=== PATIENT | female | born 1975 | race Two or more races ===

== ENCOUNTER 2018-01-07 02:45 | Emergency (ER) | payer MEDICAID, OTHER ==
[~2018-01-07] VITALS: Ht 165.1 cm; Wt 65.8 kg
--- NOTE | 2018-01-07 02:58 | NUR ---
PT A/OX4, PRESENTS TO THE ER FOR SORE THROAT. PT STATES SHE WAS SEEN BY HER PCP THIS WEEK AND WAS PRESCRIBED NAPROXEN AND PROMETHAZINE SYRUP. SHE TOOK A DOSE OF PROMETHAZINE SYRUP AROUND 0130 BUT FELT LIKE SOMETHING WAS "STUCK". NO FOREIGN BODY OBSERVED IN THE OROPHARYNX. PT DENIES PAIN, C/P, SOB, N/V/D, DIZZINESS, HEADACHE. VSS.
--- NOTE | 2018-01-07 03:13 | NUR ---
CALI PORTILLO AT BEDSIDE FOR MSE.
[2018-01-07] MEDS ORDERED: DEXAMETHASONE SOD PHOSPHATE 10 MG INJ ONE (03:25)
[2018-01-07] MEDS ORDERED: IV NORMAL SALINE 1000 ML BAG IV ONE (03:30)
[2018-01-07] MEDS ORDERED: DEXAMETHASONE SOD PHOSPHATE 4 MG INJ IV ONE (03:30)
[2018-01-07 03:36] LABS: BASOPHILS % (AUTO) 0.5 % (0.0-2.0); EOSINOPHILS % (AUTO) 0.7 % (0.0-7.0); HEMATOCRIT 35.6 % (31.2-41.9); LYMPHOCYTES # (AUTO) 1.6 K/uL (20.0-40.0); LYMPHOCYTES % (AUTO) 28.9 % (20.5-51.5); MEAN CORPUSCULAR HGB CONC 34 g/dL (32.3-35.6); MEAN CORPUSCULAR VOLUME 85.9 fL (75.5-95.3); MONOCYTES # (AUTO) 0.5 K/uL (2.0-10.0); MONOCYTES % (AUTO) 8.8 % (0.0-11.0); NEUTROPHILS # (AUTO) 3.4 K/uL (1.8-8.9); NEUTROPHILS % (AUTO) 61.1 % (38.5-71.5); PLATELET COUNT (AUTO) 139 K/uL (179-408); RED BLOOD CELL COUNT(AUTO) 4.14 MIL/uL (3.63-4.92); WHITE BLOOD COUNT (AUTO) 5.6 K/uL (3.8-11.8)
[2018-01-07 03:51] LABS: ALANINE AMINOTRANSFERASE 21 U/L (14-59); ALKALINE PHOSPHATASE 62 U/L (50-136); ASPARTATE AMINOTRANSFERASE 14 U/L (15-37); BILIRUBIN,DIRECT 0.1 mg/dL (0.0-0.2); BILIRUBIN,TOTAL 0.3 mg/dL (0.2-1.0); CARBON DIOXIDE 27 mmol/L (21-32); CHLORIDE 106 mmol/L (98-107); CREATININE 0.7 mg/dL (0.6-1.3); GLUCOSE 88 mg/dL (74-106); LIPASE 118 U/L (73-393); POTASSIUM 3.6 mmol/L (3.5-5.1); TOTAL PROTEIN, SERUM 7.3 g/dL (6.4-8.2); UREA NITROGEN, BLOOD 6 mg/dL (7-18)
[2018-01-07] MEDS ORDERED: SWABABLE VALVE TRANSFER SET EA MC ONE (04:26)
[2018-01-07] MEDS ORDERED: IOHEXOL 300MG/ML 100 ML INFUS..BTL ONE (04:26)
[2018-01-07] MEDS ORDERED: IV NORMAL SALINE 250 ML IV ONE (04:26)
--- NOTE | 2018-01-07 04:29 | NUR ---
PT TRANS TO RADIOLOGY FOR CT SCAN.
--- NOTE | 2018-01-07 04:44 | NUR ---
Pt. brought back into room from Radiology
--- NOTE | 2018-01-07 06:04 | NUR ---
Patient discharged to home in stable conditon. Written and verbal after care instructions given. Patient verbalizes understanding of instructions. PT D/C HOME W/ PRESCRIPTIONS. ALL BELONGINGS W/ PT. PT SELF-AMBULATED WITHOUT DIFFICULTY. 20G IV ACCESS IN L AC REMOVED PRIOR TO D/C - INNER CANNULA INTACT.
[2018-01-07 06:05] VITALS: BP 110/67
== END 2018-01-07 06:06 | disposition home or self-care (01) ==
LOC: ER 02:47
DX: J20.9 Acute bronchitis, unspecified (principal); M54.2 Cervicalgia
CPT/HCPCS: 36415; 70491; 80048; 80076; 83690; 84702; 85025; 96374; 99285; J1100; Q9967; A4663; J7030; J7050